=== PATIENT | male | born 1985 | race Caucasian/White ===

== ENCOUNTER 2016-12-03 16:51 | Emergency (ER) | payer BC ==
[~2016-12-03] VITALS: Ht 175.3 cm; Wt 72.6 kg
[~2016-12-03 16:51] MED LIST: DOCU50CA9 PO; HYDR-971 PO; ONDA4TAB7 PO; OXYC-323 PO; PANT40TA3 PO; TRAM-29 PO
[2016-12-03 17:20] LABS: BASO # 0.1 x10^3/uL (0.0-0.2); BASO % 1 % (0-3); EOS % 2 % (0-3); HEMATOCRIT 47.1 % (39.0-53.0); LYMPH % 25 % (24-48); MEAN CORPUSCULAR HEMOGLOBIN 30 pg (25-35); MEAN CORPUSCULAR HGB CONC 34 g/dL (31-37); MEAN CORPUSCULAR VOLUME 90 fL (79-100); MONO % 9 % (0-9); NEUT % 63 % (31-73); PLATELET COUNT 173 x10^3/uL (140-400); RED BLOOD COUNT 5.26 x10^6/uL (4.30-5.70); RED CELL DISTRIBUTION WIDTH 13.3 % (11.5-14.5); WHITE BLOOD COUNT 7.9 x10^3/uL (4.0-11.0)
[2016-12-03] MEDS ORDERED: IOHEXOL 300 MG/ML 75 ML VIAL IV ONE (17:30)
[2016-12-03] MEDS ORDERED: MORPHINE SULFATE 10 MG/ML VIAL. IV ONE (17:30)
[2016-12-03] MEDS ORDERED: KETOROLAC TROMETHAMINE 30 MG/ML INJ. IV ONE (17:30)
[2016-12-03] MEDS ORDERED: IV NORMAL SALINE 1000ML BAG 1,000 ML IV ONE (17:30)
[2016-12-03 17:41] LABS: CALCIUM 9.3 mg/dL (8.5-10.1); CREATININE 0.8 mg/dL (0.7-1.3); GFR 113.5; POTASSIUM 4.6 mmol/L (3.5-5.1)
[2016-12-03 17:47] LABS: ALBUMIN/GLOBULIN RATIO 1.2 (1.0-1.7); TOTAL BILIRUBIN 0.4 mg/dL (0.2-1.0); TOTAL PROTEIN 7.4 g/dL (6.4-8.2)
[2016-12-03 18:27] LABS: BILIRUBIN,URINE NEGATIVE (NEG); GLUCOSE,URINE NEGATIVE (NEG); NITRITE,URINE NEGATIVE (NEG); PH,URINE 5.5; PROTEIN,URINE NEGATIVE (NEG-TRACE); UROBILINOGEN,URINE 0.2 mg/dL (0.2 mg/dL)
[2016-12-03 18:34] LABS: BACTERIA,URINE 0 /HPF (0-FEW); RBC,URINE 0 /HPF (0-2)
[2016-12-03 18:49] LABS: BARBITURATES NEG (NEG); BENZODIAZEPINES NEG (NEG); CANNABINOIDS NEG (NEG); COCAINE NEG (NEG); METHADONE NEG (NEG); OPIATES POS (NEG); PHENCYCLIDINE NEG (NEG)
--- NOTE | 2016-12-03 19:27 | RAD ---
PROCEDURE CT abdomen and pelvis with contrast. HISTORY Right groin pain radiating to back. TECHNIQUE Axial images and coronal and sagittal re-formatted images are provided. 75 milliliters of intravenous Omnipaque 300 was administered. One or more of the following individualized dose reduction techniques were utilized for this exam: 1. Automated exposure control. 2. Adjustment of the mA and/or kV according to patient's size. 3. Use of iterative reconstruction technique. COMPARISON None provided at the time of dictation. FINDINGS The lung bases are clear. There is no pleural effusion. Heart is not enlarged. Liver, spleen, pancreas, and adrenals are unremarkable. Gallbladder is absent. Kidneys are symmetrically perfused. Sub centimeter probable cyst in the right kidney is noted. Densities in the left kidney probably represent nonobstructing stones up to 3 millimeters in size. Aorta is normal caliber. Lack of oral contrast limits evaluation of bowel. There is no bowel obstruction or mural thickening. There are a few diverticula in the colon without findings of diverticulitis. Appendix is likely surgically absent. Bladder is unremarkable. Prostate calcifications are noted. Bony structures are intact. IMPRESSION No acute abdominal findings. Electronically signed by: Serjio Beltran MD (December 03, 2016 19:02:42)
[2016-12-03 19:45] VITALS: BP 118/63
--- NOTE | 2016-12-03 19:48 | PHYS DOC ---
Past Medical History Past Medical History: Kidney Stone Past Surgical History: Appendectomy, Cholecystectomy Alcohol Use: None Drug Use: None Adult General Chief Complaint Chief Complaint: GROIN PAIN HPI HPI Patient is a 31 year old male who presents with right groin pain radiating into his lower back into the right lower extremity that began today after he lifted something heavy at work. Patient denies any loss of bowel bladder function. Denies any urgency frequency or dysuria. Denies any concerns for STDs. He states he has history of kidney stones. Review of Systems Review of Systems Constitutional: Denies fever or chills [] Eyes: Denies change in visual acuity, redness, or eye pain [] HENT: Denies nasal congestion or sore throat [] Respiratory: Denies cough or shortness of breath [] Cardiovascular: No additional information not addressed in HPI [] GI: Denies abdominal pain, nausea, vomiting, bloody stools or diarrhea [] : Right groin pain radiating to the back into the right lower extremity Musculoskeletal: Denies back pain or joint pain [] Integument: Denies rash or skin lesions [] Neurologic: Denies headache, focal weakness or sensory changes [] Endocrine: Denies polyuria or polydipsia [] Current Medications Current Medications Current Medications Medications (Trade) Dose Ordered Sig/Viji Start Time Stop Time Status Last Admin Dose Admin Iohexol (Omnipaque 300 Mg/ml) 75 ml 1X ONCE 12/03/16 17:30 12/03/16 17:31 DC 12/03/16 17:52 75 ML Ketorolac Tromethamine (Toradol) 30 mg 1X ONCE 12/03/16 17:30 12/03/16 17:31 DC 12/03/16 17:30 30 MG Morphine Sulfate 5 mg 1X ONCE 12/03/16 17:30 12/03/16 17:31 DC 12/03/16 17:30 5 MG Sodium Chloride 1,000 ml @ 1,000 mls/hr 1X ONCE 12/03/16 17:30 12/03/16 18:29 DC 12/03/16 17:29 1,000 MLS/HR Allergies Allergies Allergies Coded Allergies Type Severity Reaction Last Updated Verified No Known Drug Allergies 06/07/16 No Physical Exam Physical Exam Constitutional: Well developed, well nourished, no acute distress, non-toxic appearance. [] HENT: Normocephalic, atraumatic, bilateral external ears normal, oropharynx moist, no oral exudates, nose normal. [] Eyes: PERRLA, EOMI, conjunctiva normal, no discharge. [] Neck: Normal range of motion, no tenderness, supple, no stridor. [] Cardiovascular:Heart rate regular rhythm, no murmur [] Lungs & Thorax: Bilateral breath sounds clear to auscultation [] Abdomen: Bowel sounds normal, soft, no tenderness, no masses, no pulsatile masses. [] Male exam External appears normal. No palpable masses on the scrotum. Negative inguinal hernia exam bilaterally. Skin: Warm, dry, no erythema, no rash. [] Back: No tenderness, no CVA tenderness. Positive right leg straight raises. Extremities: No tenderness, no cyanosis, no clubbing, ROM intact, no edema. [] Neurologic: Alert and oriented X 3, normal motor function, normal sensory function, no focal deficits noted. [] Psychologic: Affect normal, judgement normal, mood normal. [] Current Patient Data Vital Signs Vital Signs Date Time Temp Pulse Resp B/P (MAP) Pulse Ox O2 Delivery O2 Flow Rate FiO2 12/03/16 18:15 68 136/80 (98) 99 Room Air 12/03/16 17:30 19 12/03/16 17:00 98.4 98.4 Lab Values Laboratory Tests Test 12/03/16 17:10 12/03/16 18:18 White Blood Count 7.9 x10^3/uL (4.0-11.0) Red Blood Count 5.26 x10^6/uL (4.30-5.70) Hemoglobin 16.0 g/dL (13.0-17.5) Hematocrit 47.1 % (39.0-53.0) Mean Corpuscular Volume 90 fL (79-100) Mean Corpuscular Hemoglobin 30 pg (25-35) Mean Corpuscular Hemoglobin Concent 34 g/dL (31-37) Red Cell Distribution Width 13.3 % (11.5-14.5) Platelet Count 173 x10^3/uL (140-400) Neutrophils (%) (Auto) 63 % (31-73) Lymphocytes (%) (Auto) 25 % (24-48) Monocytes (%) (Auto) 9 % (0-9) Eosinophils (%) (Auto) 2 % (0-3) Basophils (%) (Auto) 1 % (0-3) Neutrophils # (Auto) 5.0 x10^3uL (1.8-7.7) Lymphocytes # (Auto) 2.0 x10^3/uL (1.0-4.8) Monocytes # (Auto) 0.7 x10^3/uL (0.0-1.1) Eosinophils # (Auto) 0.1 x10^3/uL (0.0-0.7) Basophils # (Auto) 0.1 x10^3/uL (0.0-0.2) Sodium Level 141 mmol/L (136-145) Potassium Level 4.6 mmol/L (3.5-5.1) Chloride Level 105 mmol/L (98-107) Carbon Dioxide Level 29 mmol/L (21-32) Anion Gap 7 (6-14) Blood Urea Nitrogen 14 mg/dL (8-26) Creatinine 0.8 mg/dL (0.7-1.3) Estimated GFR (Cockcroft-Gault) 113.5 BUN/Creatinine Ratio 18 (6-20) Glucose Level 83 mg/dL (70-99) Calcium Level 9.3 mg/dL (8.5-10.1) Total Bilirubin 0.4 mg/dL (0.2-1.0) Aspartate Amino Transferase (AST) 22 U/L (15-37) Alanine Aminotransferase (ALT) 45 U/L (16-63) Alkaline Phosphatase 89 U/L (46-116) Total Protein 7.4 g/dL (6.4-8.2) Albumin 4.0 g/dL (3.4-5.0) Albumin/Globulin Ratio 1.2 (1.0-1.7) Lipase 91 U/L (73-393) Ethyl Alcohol Level < 10 mg/dL (0-10) Urine Collection Type Unknown Urine Color Yellow Urine Clarity Clear Urine pH 5.5 Urine Specific [place] >=1.030 Urine Protein Negative mg/dL (NEG-TRACE) Urine Glucose (UA) Negative mg/dL (NEG) Urine Ketones (Stick) Negative mg/dL (NEG) Urine Blood Negative (NEG) Urine Nitrite Negative (NEG) Urine Bilirubin Negative (NEG) Urine Urobilinogen Dipstick 0.2 mg/dL (0.2 mg/dL) Urine Leukocyte Esterase Small (NEG) Urine RBC 0 /HPF (0-2) Urine WBC 5-10 /HPF (0-4) Urine Bacteria 0 /HPF (0-FEW) Urine Mucus Mod /LPF Urine Opiates Screen Pos (NEG) Urine Methadone Screen Neg (NEG) Urine Barbiturates Neg (NEG) Urine Phencyclidine Screen Neg (NEG) Urine Amphetamine/Methamphetamine Neg (NEG) Urine Benzodiazepines Screen Neg (NEG) Urine Cocaine Screen Neg (NEG) Urine Cannabinoids Screen Neg (NEG) Urine Ethyl Alcohol Neg (NEG) Laboratory Tests 12/03/16 17:10 Laboratory Tests 12/03/16 17:10 EKG EKG [] Radiology/Procedures Radiology/Procedures []PROCEDURE: CT ABD PELV W/ IV CONTRST ONLY PROCEDURE CT abdomen and pelvis with contrast. HISTORY Right groin pain radiating to back. TECHNIQUE Axial images and coronal and sagittal re-formatted images are provided. 75 milliliters of intravenous Omnipaque 300 was administered. One or more of the following individualized dose reduction techniques were utilized for this exam: 1. Automated exposure control. 2. Adjustment of the mA and/or kV according to patient's size. 3. Use of iterative reconstruction technique. COMPARISON None provided at the time of dictation. FINDINGS The lung bases are clear. There is no pleural effusion. Heart is not enlarged. Liver, spleen, pancreas, and adrenals are unremarkable. Gallbladder is absent. Kidneys are symmetrically perfused. Sub centimeter probable cyst in the right kidney is noted. Densities in the left kidney probably represent nonobstructing stones up to 3 millimeters in size. Aorta is normal caliber. Lack of oral contrast limits evaluation of bowel. There is no bowel obstruction or mural thickening. There are a few diverticula in the colon without findings of diverticulitis. Appendix is likely surgically absent. Bladder is unremarkable. Prostate calcifications are noted. Bony structures are intact. IMPRESSION No acute abdominal findings. Electronically signed by: Serjio Beltran MD (December 03, 2016 19:02:42) DICTATED and SIGNED BY: SERJIO BELTRAN MD DATE: 12/03/16 190 CC: COLETTE NEIL APRN; NON,STAFF; MIO AGUILERA MD ~ Course & Med Decision Making Course & Med Decision Making Pertinent Labs and Imaging studies reviewed. (See chart for details) Patient is in the ED with right groin pain that began after he lifted something heavy at work. Pain radiates to the back into the right lower extremity with positive right leg straight raises. CBC with no acute findings, CMP would not acute findings, lipase with no acute finding. CT of the abdomen and pelvic was negative for any acute findings. Urine was positive for small amount of leukocytes, inquired from patient about possibilities for STDs which he denied. He was discharged with doxycycline, Flexeril and naproxen. Urine was sent to lab for STD check. Dragon Disclaimer Dragon Disclaimer This electronic medical record was generated, in whole or in part, using a voice recognition dictation system. Departure Departure Impression: Primary Impression: Right groin pain Additional Impressions: Urinary tract infection Right sciatic nerve pain Back pain Disposition: HOME, SELF-CARE Condition: STABLE Referrals: MIO AGUILERA MD (PCP) Follow-up with your own doctor in one week Patient Instructions: Back Pain, Adult, Sciatica, Urinary Tract Infection Additional Instructions: You were seen for groin pain. Your CT of the abdomen and pelvic is negative for any acute findings. Your urine shows you have UTI. Complete your antibiotics. Scripts Doxycycline Hyclate (DOXYCYCLINE HYCLATE) 100 Mg Capsule 1 CAP PO BID, #20 CAP Prov: COLETTE NEIL APRN 12/03/16 Cyclobenzaprine Hcl (CYCLOBENZAPRINE HCL) 10 Mg Tablet 1 TAB PO TID, #30 TAB Prov: COLETTE NEIL APRN 12/03/16 Ciprofloxacin Hcl (CIPRO) 500 Mg Tablet 1 TAB PO BID, #14 TAB Prov: COLETTE NEIL APRN 12/03/16 Naproxen (NAPROXEN) 500 Mg Tablet. 1 TAB PO BID, #60 TAB 2 Refills Prov: COLETTE NEIL APRN 12/03/16 Problem Qualifiers COLETTE NEIL APRN December 03, 2016 19:48
[2016-12-03] MEDS ORDERED: CYCL10TA2 PO (19:51)
[2016-12-03] MEDS ORDERED: CIPR500T94 PO (19:51)
[2016-12-03] MEDS ORDERED: NAPR500T8 PO (19:51)
[2016-12-03] MEDS ORDERED: DOXY100C2 PO (19:55)
== END 2016-12-03 20:00 | disposition home or self-care (01) ==
LOC: ER 16:51
DX: N39.0 Urinary tract infection, site not specified (principal); M54.41 Lumbago with sciatica, right side; Z90.49 Acquired absence of other specified parts of digestive tract; Z87.442 Personal history of urinary calculi
CPT/HCPCS: 36415; 74177; 80053; 80305; 80320; 81001; 83690; 85027; 87491; 87591; 96361; 96374; 96375; 99285; J1885; J2270; J7030; Q9967; G0480; G0481

== ENCOUNTER 2017-04-08 11:03 | Emergency (ER) | payer BC ==
[~2017-04-08 11:03] MED LIST changes: +CIPR500T94 PO; +CYCL10TA2 PO; +DOXY100C2 PO; +NAPR500T8 PO; -TRAM-29 PO; +TRAM-48 PO
[2017-04-08 11:47] VITALS: BP 127/69
[2017-04-08] MEDS ORDERED: NAPROXEN 500 MG TABLET PO STA (11:52)
[2017-04-08] MEDS ORDERED: CYCLOBENZAPRINE 10 MG TABLET. PO ONE (12:00)
[2017-04-08] MEDS ORDERED: HYDROcodone/APAP 5/325MG 1 TAB TABLET PO ONE (12:00)
--- NOTE | 2017-04-08 12:29 | RAD ---
Three-view lumbar spine radiographs 04/08/2017 Clinical history: Low back pain for 5 days with numbness and tingling in both legs. AP and two lateral standing digital radiographs of the lumbar spine were obtained. Mild S-shaped curvature of the thoracolumbar spine is seen. No fracture or subluxation of the lumbar vertebrae is noted. No significant degenerative changes are seen. Impression: No acute osseous abnormality is seen.
--- NOTE | 2017-04-08 12:46 | PHYS DOC ---
Past Medical History Past Medical History: Kidney Stone, Other Additional Past Medical Histor: KIDNEY STONES Past Surgical History: Appendectomy, Cholecystectomy Alcohol Use: None Drug Use: None Adult General Chief Complaint Chief Complaint: BACK PAIN OR INJURY HPI HPI Patient is a 31 year old male with history of kidney stones who presents today complaining of left low back pain radiating to the left lower extremity that began 5 days ago. Patient denies any trauma. Patient denies any loss of bowel/ bladder function. Patient is also complaining of numbness and tingling to the left hand. Denies any neck pain. Denies any injuries. Patient's also complaining of weakness to the left upper extremity and left lower extremity. Review of Systems Review of Systems Constitutional: Denies fever or chills [] Eyes: Denies change in visual acuity, redness, or eye pain [] HENT: Denies nasal congestion or sore throat [] Respiratory: Denies cough or shortness of breath [] Cardiovascular: No additional information not addressed in HPI [] GI: Denies abdominal pain, nausea, vomiting, bloody stools or diarrhea [] : Denies dysuria or hematuria [] Musculoskeletal: Low back pain, radiating to the left lower extremity. Integument: Denies rash or skin lesions [] Neurologic: Denies headache, focal weakness or sensory changes. Left upper extremity numbness and tingling. Current Medications Current Medications Current Medications Medications (Trade) Dose Ordered Sig/[facility] Start Time Stop Time Status Last Admin Dose Admin Acetaminophen/ Hydrocodone Bitart (Lortab 5/325) 1 tab 1X ONCE 04/08/17 12:00 04/08/17 12:01 DC 04/08/17 12:14 1 TAB Cyclobenzaprine HCl (Flexeril) 10 mg 1X ONCE 04/08/17 12:00 04/08/17 12:01 DC 04/08/17 12:14 10 MG Naproxen (Naprosyn) 500 mg 1X STAT 04/08/17 11:52 04/08/17 12:00 DC 04/08/17 12:14 500 MG Allergies Allergies Allergies Coded Allergies Type Severity Reaction Last Updated Verified No Known Drug Allergies 06/07/16 No Physical Exam Physical Exam Constitutional: Well developed, well nourished, no acute distress, non-toxic appearance. [] HENT: Normocephalic, atraumatic, bilateral external ears normal, oropharynx moist, no oral exudates, nose normal. [] Eyes: PERRLA, EOMI, conjunctiva normal, no discharge. [] Neck: Normal range of motion, no tenderness, supple, no stridor. [] Cardiovascular:Heart rate regular rhythm, no murmur [] Lungs & Thorax: Bilateral breath sounds clear to auscultation [] Abdomen: Bowel sounds normal, soft, no tenderness, no masses, no pulsatile masses. [] Skin: Warm, dry, no erythema, no rash. [] Back: Moderate tenderness on palpation of the left SI joint, no tenderness midline lumbar spine tenderness, no CVA tenderness. 5/5 strength to bilateral upper and lower extremities. Patient is up and ambulating with no difficulties. Extremities: No tenderness, no cyanosis, no clubbing, ROM intact, no edema. [] Neurologic: Alert and oriented X 3, normal motor function, normal sensory function, no focal deficits noted. [] Psychologic: Affect normal, judgement normal, mood normal. [] Current Patient Data Vital Signs Vital Signs Date Time Temp Pulse Resp B/P (MAP) Pulse Ox O2 Delivery O2 Flow Rate FiO2 04/08/17 12:14 16 04/08/17 11:47 98.0 70 127/69 (88) 98 Room Air 98.0 EKG EKG [] Radiology/Procedures Radiology/Procedures [] Course & Med Decision Making Course & Med Decision Making Pertinent Labs and Imaging studies reviewed. (See chart for details) This is a 31-year-old male patient presenting to the ED today with the pain on the left low back radiating to the left lower extremity as well as numbness and tingling to the left upper extremity. No known injury. No loss of bowel bladder function. Cervical spine and lumbar spine x-rays interpreted by radiologist are negative for any acute findings. Interestingly this patient was also complaining of weakness to the left upper extremity and left lower extremity. Off not he is up in the room walking ambulating with no difficulties playing on his cell phone using the left upper extremity with no difficulties. He even pushed down on his left lower extremity to get out of bed with no difficulties. He requested a note for work which was provided for 3 days. Patient was discharged with naproxen and Flexeril. Instructed to follow-up with her PCP in 1-2 weeks. Provided return precautions and discharged in stable condition. Dragon Disclaimer Dragon Disclaimer This electronic medical record was generated, in whole or in part, using a voice recognition dictation system. Departure Departure Impression: Primary Impression: Cervical radiculopathy Additional Impressions: Low back pain Sciatica, left side Disposition: 01 HOME, SELF-CARE Condition: STABLE Referrals: MIO AGUILERA MD (PCP) follow up with your doctor in one week Patient Instructions: Back Pain, Adult, Cervical Radiculopathy, [id number], Sciatica, [id number] Additional Instructions: You were seen for low back pain radiating to the left lower extremity. You can apply heat or ice to the affected area. Your left upper extremity numbness and tingling/symptoms are consistent with cervical radiculopathy. Follow-up with her primary care doctor for this. Take the prescribed medicines as ordered. Do not drive or operate machinery on the cyclobenzaprine. Scripts Cyclobenzaprine Hcl (CYCLOBENZAPRINE HCL) 10 Mg Tablet 1 TAB PO TID, #30 TAB Prov: COLETTE NEIL APRN 04/08/17 Naproxen (NAPROXEN) 500 Mg Tablet. 1 TAB PO BID, #60 TAB 0 Refills Prov: COLETTE NEIL APRN 04/08/17 Problem Qualifiers Additional Impressions: Low back pain Chronicity: acute Back pain laterality: left Sciatica presence: with sciatica Sciatica laterality: sciatica of left side Qualified Codes: M54.42 - Lumbago with sciatica, left side COLETTE NEIL APRN Apr 08, 2017 12:46
--- NOTE | 2017-04-08 13:00 | RAD ---
Five-view cervical spine radiographs 04/08/2017 Clinical history: Neck pain with left hand tingling. Standing AP, lateral, bilateral oblique and AP open mouth odontoid digital radiographs of the cervical spine were obtained. Minimal lateral curvature of the cervical spine is seen convex to the right. There is slight reversal of the normal cervical lordosis. No fracture or subluxation is seen. No significant degenerative changes are noted. No definite area of neural foraminal stenosis is seen. No prevertebral soft tissue swelling is seen. Impression: No acute osseous abnormality is seen.
[2017-04-08] MEDS ORDERED: NAPR500T8 PO (13:45)
[2017-04-08] MEDS ORDERED: CYCL10TA2 PO (13:45)
--- NOTE | 2017-04-09 13:27 | EKG ---
[facility] [address] [place] [address] Test Date: 2017-04-08 Test Time: 11:36:24 Pat Name: NICOLASA ACOSTA Department: Room: Gender: M Dairy Clerk: : 1985 Requested By: STAFF NON Order Number: [id number] Reading MD: Imani Lara Measurements Intervals [place] Rate: 65 P: 36 [place]: 154 QRS: 27 QRSD: 92 T: 31 QT: 362 QTc: 381 Interpretive Statements SINUS RHYTHM LEFT ATRIAL ABNORMALITY INCOMPLETE RIGHT BUNDLE BRANCH BLOCK Electronically Signed On 04-10-2017 12:02:43 CDT by Imani Lara
== END 2017-04-08 13:57 | disposition home or self-care (01) ==
LOC: ER 11:03
DX: M54.42 Lumbago with sciatica, left side (principal); M54.12 Radiculopathy, cervical region; Z90.49 Acquired absence of other specified parts of digestive tract; Z87.442 Personal history of urinary calculi
CPT/HCPCS: 72040; 72100; 93005; 99284-25

== ENCOUNTER 2018-01-21 09:02 | Emergency (ER) | payer BC ==
[2018-01-21] MEDS: ONDANSETRON PF 4 MG/2 ML VIAL. IV (09:48)
[2018-01-21 09:49] LABS: ADD MAN DIFF? NO; BASO % 0 % (0-3); EOS % 0 % (0-3); HEMATOCRIT 46.3 % (39.0-53.0); HEMOGLOBIN 16.1 g/dL (13.0-17.5); LYMPH # 1.1 x10^3/uL (1.0-4.8); LYMPH % 9 % (24-48); MEAN CORPUSCULAR HEMOGLOBIN 31 pg (25-35); MEAN CORPUSCULAR HGB CONC 35 g/dL (31-37); MEAN CORPUSCULAR VOLUME 89 fL (79-100); MONO # 1.2 x10^3/uL (0.0-1.1); MONO % 10 % (0-9); NEUT % 81 % (31-73); PLATELET COUNT 169 x10^3/uL (140-400); RED BLOOD COUNT 5.23 x10^6/uL (4.30-5.70); RED CELL DISTRIBUTION WIDTH 13.5 % (11.5-14.5); WHITE BLOOD COUNT 12.4 x10^3/uL (4.0-11.0)
[2018-01-21] MEDS: fentaNYL PF VIAL 100 MCG/2 ML VIAL IV (09:50)
[2018-01-21] MEDS: CLINDAMYCIN 900MG PREMIX 50 ML IV (09:53)
[2018-01-21 09:58] LABS: ANION GAP 6 (6-14); BLOOD UREA NITROGEN 12 mg/dL (8-26); BUN/CREATININE RATIO 13 (6-20); CALCIUM 8.4 mg/dL (8.5-10.1); CARBON DIOXIDE 26 mmol/L (21-32); CHLORIDE 106 mmol/L (98-107); CREATININE 0.9 mg/dL (0.7-1.3); GFR 98.4; GLUCOSE 112 mg/dL (70-99); POTASSIUM 4.1 mmol/L (3.5-5.1); SODIUM 138 mmol/L (136-145)
[2018-01-21 10:04] LABS: ALBUMIN 3.9 g/dL (3.4-5.0); ALBUMIN/GLOBULIN RATIO 1.2 (1.0-1.7); ALK PHOS 90 U/L (46-116); ALT (SGPT) 35 U/L (16-63); AST (SGOT) 17 U/L (15-37); TOTAL BILIRUBIN 0.5 mg/dL (0.2-1.0); TOTAL PROTEIN 7.2 g/dL (6.4-8.2)
[2018-01-21] MEDS: IOHEXOL 300 MG/ML 100ML VIAL. IV (10:18)
== END 2018-01-21 12:33 | disposition home or self-care (01) ==
LOC: ER 12:33
DX: L03.213 Periorbital cellulitis (principal); K04.7 Periapical abscess without sinus; K00.6 Disturbances in tooth eruption; Z90.49 Acquired absence of other specified parts of digestive tract
CPT/HCPCS: 36415; 70487; 80053; 85025; 96365; 96375; 99285-25; J2405; J3010; J3490; Q9967

== ENCOUNTER 2018-02-14 10:06 | Emergency (ER) | payer BC ==
[2018-02-14 10:34] LABS: ADD MAN DIFF? NO
[2018-02-14 10:37] LABS: BASO % 0 % (0-3); EOS # 0.1 x10^3/uL (0.0-0.7); EOS % 1 % (0-3); HEMATOCRIT 46.6 % (39.0-53.0); HEMOGLOBIN 15.8 g/dL (13.0-17.5); LYMPH % 12 % (24-48); MEAN CORPUSCULAR HEMOGLOBIN 30 pg (25-35); MEAN CORPUSCULAR HGB CONC 34 g/dL (31-37); MEAN CORPUSCULAR VOLUME 89 fL (79-100); MONO # 0.5 x10^3/uL (0.0-1.1); MONO % 6 % (0-9); NEUT # 6.7 x10^3uL (1.8-7.7); NEUT % 81 % (31-73); PLATELET COUNT 146 x10^3/uL (140-400); RED BLOOD COUNT 5.24 x10^6/uL (4.30-5.70); RED CELL DISTRIBUTION WIDTH 13.3 % (11.5-14.5); WHITE BLOOD COUNT 8.3 x10^3/uL (4.0-11.0)
[2018-02-14 10:45] LABS: ANION GAP 9 (6-14); BLOOD UREA NITROGEN 19 mg/dL (8-26); BUN/CREATININE RATIO 21 (6-20); CALCIUM 8.6 mg/dL (8.5-10.1); CARBON DIOXIDE 26 mmol/L (21-32); CHLORIDE 105 mmol/L (98-107); CREATININE 0.9 mg/dL (0.7-1.3); GFR 98.4; GLUCOSE 128 mg/dL (70-99); POTASSIUM 4.2 mmol/L (3.5-5.1); SODIUM 140 mmol/L (136-145)
[2018-02-14] MEDS: IOHEXOL 300 MG/ML 100ML VIAL. IV (10:45)
[2018-02-14] MEDS ORDERED: CONTRAST GIVEN. MC (10:45)
[2018-02-14] MEDS: fentaNYL PF VIAL 100 MCG/2 ML VIAL IV (10:45)
[2018-02-14] MEDS: IV NORMAL SALINE 1000ML BAG 1,000 ML IV (10:45)
[2018-02-14] MEDS: ONDANSETRON PF 4 MG/2 ML VIAL. IV (10:46)
[2018-02-14 10:51] LABS: ALBUMIN 3.7 g/dL (3.4-5.0); ALK PHOS 109 U/L (46-116); ALT (SGPT) 121 U/L (16-63); AST (SGOT) 102 U/L (15-37); CREATINE KINASE 261 U/L (39-308); DIRECT BILIRUBIN 0.3 mg/dL (0.0-0.2); LIPASE 389 U/L (73-393); TOTAL BILIRUBIN 0.8 mg/dL (0.2-1.0); TOTAL PROTEIN 7.4 g/dL (6.4-8.2)
[2018-02-14 11:46] LABS: BILIRUBIN,URINE SMALL (NEG); CLARITY,URINE CLEAR; COLOR,URINE AMBER; GLUCOSE,URINE NEGATIVE (NEG); NITRITE,URINE NEGATIVE (NEG); PROTEIN,URINE NEGATIVE (NEG-TRACE); RBC,URINE OCC /HPF (0-2)
[2018-02-14 11:47] LABS: BACTERIA,URINE FEW /HPF (0-FEW); SQUAMOUS EPITHELIAL CELL,UR OCC /LPF
== END 2018-02-14 12:35 | disposition home or self-care (01) ==
LOC: ER 10:06
DX: R10.11 Right upper quadrant pain (principal); R10.31 Right lower quadrant pain; R11.2 Nausea with vomiting, unspecified; R07.89 Other chest pain; Z90.49 Acquired absence of other specified parts of digestive tract; Z90.89 Acquired absence of other organs; Z87.442 Personal history of urinary calculi; Z88.6 Allergy status to analgesic agent
CPT/HCPCS: 36415; 71046; 74177; 80053; 80076; 81001; 82550; 83690; 85025; 93005; 96361; 96374; 96375; 99285-25; J2405; J3010; J7030; Q9967

== ENCOUNTER 2018-04-20 09:08 | Emergency (ER) | payer BC ==
[~2018-04-20] VITALS: Ht 175.3 cm; Wt 72.6 kg
[~2018-04-20 09:08] MED LIST changes: +CLIN150C14 PO; +IBUP-1060 PO
[2018-04-20 09:28] VITALS: BP 140/90
--- NOTE | 2018-04-20 10:01 | PHYS DOC ---
Past Medical History Past Medical History: Kidney Stone, Other Additional Past Medical Histor: KIDNEY STONES Past Surgical History: Appendectomy, Cholecystectomy Alcohol Use: None Drug Use: None Adult General Chief Complaint Chief Complaint: HAND PROBLEM HPI HPI Patient is a 32 year old male who presents to the ER with complaints of right hand pain after fall this morning. He states he was playing rotten egg with his children when he tripped and fell. Currently, he rates his pain as a 9 out of 10 on the pain scale. He did not take any medication prior to arrival to the ER. he also reports limited movement of his left middle finger after the injury. Review of Systems Review of Systems Constitutional: Denies fever or chills [] Musculoskeletal: Denies back pain, Reports R hand pain Integument: Denies rash or skin lesions; reports swelling and bruising to R 2nd and 3rd digits after fall [] Neurologic: Denies headache, focal weakness or sensory changes [] All other systems were reviewed and found to be within normal limits, except as documented in this note. Current Medications Current Medications Current Medications Medications (Trade) Dose Ordered Sig/[facility] Start Time Stop Time Status Last Admin Dose Admin Naproxen (Naprosyn) 500 mg 1X STAT 04/20/18 09:49 04/20/18 09:52 DC 04/20/18 10:06 500 MG Allergies Allergies Allergies Coded Allergies Type Severity Reaction Last Updated Verified aspirin Allergy Intermediate Hives 02/14/18 Yes Physical Exam Physical Exam Constitutional: Well developed, well nourished, no acute distress, non-toxic appearance. [] HENT: Normocephalic, atraumatic, bilateral external ears normal, oropharynx moist, no oral exudates, nose normal. [] Eyes: PERRLA, conjunctiva normal, no discharge. [] Skin: Warm, dry, no erythema; bruising noted to R 2nd and third digits near the PIP Extremities: No cyanosis, no clubbing, Swelling and tenderness to right hand proximal to 2nd and 3rd digits and to the 2nd and 3rd digits, no deformity. R radial pulse 2+ Neurologic: Alert and oriented X 3, normal motor function, normal sensory function, no focal deficits noted. [] Psychologic: Affect normal, judgement normal, mood normal. [] Current Patient Data Vital Signs Vital Signs Date Time Temp Pulse Resp B/P (MAP) Pulse Ox O2 Delivery O2 Flow Rate FiO2 04/20/18 09:28 98.6 92 18 140/90 (107) 97 Room Air 98.6 EKG EKG [] Radiology/Procedures Radiology/Procedures PROCEDURE: HAND RIGHT 3V EXAM: Right hand, 3 views. HISTORY: Fall. Swelling. COMPARISON: None. FINDINGS: 3 views of the right hand are obtained. There is a 7 mm displaced fracture fragment from the base of the third middle proximal phalanx. No additional fracture is seen. There is a bone island within the fourth distal phalanx. IMPRESSION: Displaced fracture fragment from the base of the third proximal phalanx. [] Course & Med Decision Making Course & Med Decision Making Pertinent Labs and Imaging studies reviewed. (See chart for details) Dx: displaced fracture of proximal phalanx of right 3rd finger X-ray revealed fx. PT was given one 500 mg naproxen in the department, reported reduced pain after medication. Pt was placed in an aluminum finger splint. Prescription for hydrocodone #12 written. Follow up wtih Dr. Fischer. Return to ER if sx worsen. Patient verbalized an understanding of home care, medications, follow-up, and return to ED instructions and was in agreement with the plan of care. [] Dragon Disclaimer Dragon Disclaimer This electronic medical record was generated, in whole or in part, using a voice recognition dictation system. Departure Departure Impression: Primary Impression: Fracture of proximal phalanx of finger of right hand Disposition: 01 HOME, SELF-CARE Condition: STABLE Referrals: MIO AGUILERA MD (PCP) HARSH FISCHER II, MD Patient Instructions: Finger Fracture, [id number] Additional Instructions: Fill prescription and take as directed for pain. You may also take ibuprofen for pain. Recommend application of ice, elevation, and rest of affected extremity. Wear the splint that was placed until follow up appointment. Return to the ER if your symptoms worsen. Scripts Hydrocodone Bit/Acetaminophen (HYDROCODONE-APAP 5-325 ) 1 Each Tablet 1 TAB PO PRN Q6HRS PRN for PAIN for 3 Days, #12 TAB 0 Refills Prov: MELQUIADES DAWKINS APRN 04/20/18 Splinting Splinting : Location: 3rd digit of R hand Pre-Made Type: metal Splint: aluminum finger Pre-Proc Neuro Vasc Exam: normal Post-Proc Neuro Vasc Exam: normal, unchanged from pre-exam Attending Signature Attending Signature I have reviewed the PA/EVENING OR NIGHT NURSE SUPERVISOR's note and plan of care. I was available for consultation as needed during the patient's visit in the emergency department. I agree with the clinical impression, plan, and disposition. MELQUIADES DAWKINS APRN Apr 20, 2018 10:01 NHUNG MARINO DO Apr 20, 2018 12:26
[2018-04-20] MEDS: NAPROXEN 500 MG TABLET PO STA (10:06)
--- NOTE | 2018-04-20 10:14 | RAD ---
EXAM: Right hand, 3 views. HISTORY: Fall. Swelling. COMPARISON: None. FINDINGS: 3 views of the right hand are obtained. There is a 7 mm displaced fracture fragment from the base of the third middle proximal phalanx. No additional fracture is seen. There is a bone island within the fourth distal phalanx. IMPRESSION: Displaced fracture fragment from the base of the third proximal phalanx. Electronically signed by: Annemarie Hernandez MD (04/20/2018 10:09 AM) [place] [id number]
[2018-04-20] MEDS ORDERED: HYDR-2758 PO (11:12)
== END 2018-04-20 11:17 | disposition home or self-care (01) ==
LOC: ER 09:08
DX: S62.612A Displaced fracture of proximal phalanx of right middle finger, initial encounter for closed fracture (principal); Z88.6 Allergy status to analgesic agent; Z90.49 Acquired absence of other specified parts of digestive tract; Z90.89 Acquired absence of other organs; Z87.442 Personal history of urinary calculi; W01.0XXA Fall on same level from slipping, tripping and stumbling without subsequent striking against object, initial encounter; Y93.89 Activity, other specified; Y92.89 Other specified places as the place of occurrence of the external cause; Y99.8 Other external cause status
CPT/HCPCS: 29130; 73130; 99284

== ENCOUNTER 2019-04-22 11:50 | Emergency (ER) | payer OTHER, BC ==
[~2019-04-22] VITALS: Ht 175.3 cm; Wt 81.6 kg
[~2019-04-22 11:50] MED LIST changes: +HYDR-2761 PO; +HYDR-3164 PO; -HYDR-971 PO; -OXYC-323 PO; +OXYC1TAB15 PO; -PANT40TA3 PO; +PANT40TA77 PO
[2019-04-22 12:05] VITALS: BP 123/79
--- NOTE | 2019-04-22 13:29 | RAD ---
EXAM: Chest and left ribs, 4 views; left clavicle, 2 views HISTORY: Fall. Pain. COMPARISON: 02/14/2018 FINDINGS: A frontal view of the chest and 3 views of the left ribs and 2 views of the left clavicle are obtained. There is no infiltrate, pleural effusion or pneumothorax. No displaced fracture is seen. The acromioclavicular joint appears to be intact. IMPRESSION: No acute pulmonary or osseous finding. Electronically signed by: Annemarie Hernandez MD (04/22/2019 1:27 PM) [place] [id number]
[2019-04-22] MEDS ORDERED: NAPR-514 PO (13:50)
--- NOTE | 2019-04-22 13:50 | PHYS DOC ---
Past Medical History Past Medical History: Anxiety, Depression, Kidney Stone, Other Additional Past Medical Histor: KIDNEY STONES Past Surgical History: Appendectomy, Cholecystectomy, Tonsillectomy Alcohol Use: None Drug Use: None Adult General Chief Complaint Chief Complaint: MECHANICAL FALL HPI HPI Patient is a 33 year old [f__sex] who presents with [] Review of Systems Review of Systems Constitutional: Denies fever or chills [] Eyes: Denies change in visual acuity, redness, or eye pain [] HENT: Denies nasal congestion or sore throat [] Respiratory: Denies cough or shortness of breath [] Cardiovascular: No additional information not addressed in HPI [] GI: Denies abdominal pain, nausea, vomiting, bloody stools or diarrhea [] : Denies dysuria or hematuria [] Musculoskeletal: Denies back pain or joint pain [] Integument: Denies rash or skin lesions [] Neurologic: Denies headache, focal weakness or sensory changes [] Endocrine: Denies polyuria or polydipsia [] All other systems were reviewed and found to be within normal limits, except as documented in this note. Allergies Allergies Allergies Coded Allergies Type Severity Reaction Last Updated Verified aspirin Allergy Intermediate Hives 02/14/18 Yes Physical Exam Physical Exam Constitutional: Well developed, well nourished, no acute distress, non-toxic appearance. [] HENT: Normocephalic, atraumatic, bilateral external ears normal, oropharynx moist, no oral exudates, nose normal. [] Eyes: PERRLA, EOMI, conjunctiva normal, no discharge. [] Neck: Normal range of motion, no tenderness, supple, no stridor. [] Cardiovascular:Heart rate regular rhythm, no murmur [] Lungs & Thorax: Bilateral breath sounds clear to auscultation [] Abdomen: Bowel sounds normal, soft, no tenderness, no masses, no pulsatile masses. [] Skin: Warm, dry, no erythema, no rash. [] Back: No tenderness, no CVA tenderness. [] Extremities: No tenderness, no cyanosis, no clubbing, ROM intact, no edema. [] Neurologic: Alert and oriented X 3, normal motor function, normal sensory function, no focal deficits noted. [] Psychologic: Affect normal, judgement normal, mood normal. [] Current Patient Data Vital Signs Vital Signs Date Time Temp Pulse Resp B/P (MAP) Pulse Ox O2 Delivery O2 Flow Rate FiO2 04/22/19 12:05 98.6 90 16 123/79 (94) 96 Room Air 98.6 EKG EKG [] Radiology/Procedures Radiology/Procedures PROCEDURE: CLAVICLE LEFT EXAM: Chest and left ribs, 4 views; left clavicle, 2 views HISTORY: Fall. Pain. COMPARISON: 02/14/2018 FINDINGS: A frontal view of the chest and 3 views of the left ribs and 2 views of the left clavicle are obtained. There is no infiltrate, pleural effusion or pneumothorax. No displaced fracture is seen. The acromioclavicular joint appears to be intact. IMPRESSION: No acute pulmonary or osseous finding.[] Course & Med Decision Making Course & Med Decision Making Pertinent Labs and Imaging studies reviewed. (See chart for details) [] Dragon Disclaimer Dragon Disclaimer This electronic medical record was generated, in whole or in part, using a voice recognition dictation system. Departure Departure Impression: Primary Impression: Fall from standing Additional Impressions: Contusion of rib on left side Contusion of left clavicle Disposition: 01 HOME, SELF-CARE Condition: STABLE Referrals: MIO AGUILERA MD (PCP) Patient Instructions: Contusion, [id number], Fall Prevention and Home Safety, [id number] Additional Instructions: Fill prescription and take as directed. Apply ice to sore areas for 10-15 minute s every hour while awake today, then as needed for comfort. Follow up with your work comp doctor in 1-2 days, return to the ER if symptoms worsen. Scripts Naproxen (NAPROXEN) 500 Mg Tablet 1 TAB PO BID PRN for PAIN for 10 Days, #20 TAB 0 Refills Prov: MELQUIADES DAWKINS INTERNET MARKETING SPECIALIST 04/22/19 Problem Qualifiers Primary Impression: Fall from standing Encounter type: initial encounter Qualified Codes: W19.XXXA - Unspecified fall, initial encounter Additional Impressions: Contusion of rib on left side Encounter type: initial encounter Qualified Codes: S20.212A - Contusion of left front wall of thorax, initial encounter Contusion of left clavicle Encounter type: initial encounter Qualified Codes: S40.012A - Contusion of left shoulder, initial encounter MELQUIADES DAWKINS INTERNET MARKETING SPECIALIST Apr 22, 2019 13:50
== END 2019-04-22 14:03 | disposition home or self-care (01) ==
LOC: ER 11:50
DX: S20.212A Contusion of left front wall of thorax, initial encounter (principal); S40.012A Contusion of left shoulder, initial encounter; Z88.6 Allergy status to analgesic agent; W18.39XA Other fall on same level, initial encounter; Y93.89 Activity, other specified; Y92.89 Other specified places as the place of occurrence of the external cause; Y99.8 Other external cause status
CPT/HCPCS: 71101; 73000; 99284

== ENCOUNTER 2019-05-02 20:56 | Emergency (ER) | payer OTHER, BC ==
[~2019-05-02] VITALS: Ht 175.3 cm; Wt 81.6 kg
[~2019-05-02 20:56] MED LIST changes: +NAPR-514 PO
[2019-05-02] MEDS ORDERED: HYDROcodone/APAP 5/325MG 1 TAB TABLET PO ONE (23:00)
[2019-05-02] MEDS ORDERED: ORPHENADRINE CITRATE 60 MG/2 ML VIAL. IM ONE (23:00)
--- NOTE | 2019-05-02 23:38 | PHYS DOC ---
Past Medical History Past Medical History: Anxiety, Depression, Kidney Stone, Other Additional Past Medical Histor: KIDNEY STONES (KALEN GALEANA APRN) Past Surgical History: Appendectomy, Cholecystectomy, Tonsillectomy (KALEN GALEANA APRN) Alcohol Use: None Drug Use: None (KALEN GALEANA APRN) Attending Signature I have participated in the care of this patient and I have reviewed and agree with all pertinent clinical information above including history, exam, and recommendations. (VENTURA QUESADA MD) Adult General Chief Complaint Chief Complaint: LOWER EXT PAIN HPI HPI Patient is a 33 year old male who presents with one week ago was at work in his right foot slipped out from under him when he fell on his left side. Patient states he has been following up with work comp doctors and they have him on light duty and he cannot take more than 10 pounds at a time. Patient states that this morning he actually had physical therapy because they state that he has a pinched nerve in his neck and down into his medial nerve in his left arm. Patient states that yesterday at work he felt a pop in his lower back but did not think much of it. Patient states when he went to work today he began having extreme pain in his bilateral lower back and his mid back with sharp shooting pain going down the back of his bilateral legs. Patient states his bilateral legs began to tingle and have a burning sensation. Patient is rating his pain a 10 out of 10. Patient states he can walk but it is very painful. Patient states he can't stand up straight due to the pain. Patient states he last took any pain medication at 1450 and it was tramadol. Patient denies losing his bowel or bladder. (KALEN GALEANA APRN) Review of Systems Review of Systems Musculoskeletal: back pain or joint pain [] All other systems were reviewed and found to be within normal limits, except as documented in this note. (KALEN GALEANA APRN) Current Medications Current Medications Current Medications Medications (Trade) Dose Ordered Sig/Viji Start Time Stop Time Status Last Admin Dose Admin Acetaminophen/ Hydrocodone Bitart (Lortab 5/325) 1 tab 1X ONCE 05/02/19 23:00 05/02/19 23:01 DC 05/02/19 23:15 1 TAB Orphenadrine Citrate (Norflex) 60 mg 1X ONCE 05/02/19 23:00 05/02/19 23:01 DC 05/02/19 23:15 60 MG (VENTURA QUESADA MD) Allergies Allergies Allergies Coded Allergies Type Severity Reaction Last Updated Verified aspirin Allergy Intermediate Hives 02/14/18 Yes (VENTURA QUESADA MD) Physical Exam Physical Exam Constitutional: Well developed, well nourished, no acute distress, non-toxic appearance. [] Neck: Normal range of motion, no tenderness, supple, no stridor. [] Skin: Warm, dry, no erythema, no rash. [] Back: Paraspinal lumbar, focal bony spinal from lumbar up through thoracic tenderness, no CVA tenderness. [] Extremities: No tenderness, no cyanosis, no clubbing, ROM intact, no edema. [] Neurologic: Alert and oriented X 3, normal motor function, normal sensory function, no focal deficits noted. [] Psychologic: Affect normal, judgement normal, mood normal. [] (KALEN GALEANA APRN) Current Patient Data Vital Signs Vital Signs Date Time Temp Pulse Resp B/P (MAP) Pulse Ox O2 Delivery O2 Flow Rate FiO2 05/02/19 23:46 68 16 113/65 (81) 98 05/02/19 23:15 Room Air 05/02/19 21:35 97.6 97.6 (VENTURA QUESADA MD) EKG EKG [] (KALEN GALEANA APRN) Radiology/Procedures Radiology/Procedures [] (KALEN GALEANA APRN) Impressions: [facility] [address] [place] [address] IMAGING REPORT Signed PATIENT: NICOLASA ACOSTA ACCOUNT: [id number] : 1985 LOCATION: ER AGE: 33 SEX: M EXAM STATUS: REG ER ORD. PHYSICIAN: KALEN GALEANA APRN REASON: back pain radiating down both legs, fall x10 days ago PROCEDURE: CERVICAL SPINE 2-3V Cervical spine 4 views: Reason for examination: Fell 10 days ago with back pain radiating down both legs. The odontoid process is intact and normally centered between the lateral masses of C1. The cervical vertebral bodies are normally aligned anteriorly and posteriorly. No acute fracture or subluxation is seen. The intervertebral discs are maintained. Prevertebral soft tissues are normal. IMPRESSION: No acute abnormality in the cervical spine. Thoracic spine 2 views: The vertebral bodies of the thoracic spine appear to be normally aligned anteriorly and posteriorly. No acute fracture or subluxation is evident. Posterior elements appear to be intact. The intervertebral discs are maintained. IMPRESSION: No acute abnormality in the thoracic spine. Lumbar spine 3 views: The vertebral bodies of the lumbar spine are normally aligned anteriorly and posteriorly. No acute fracture or subluxation is seen. Posterior elements are intact. The intervertebral discs are maintained. No gross abnormality seen at the sacrum or sacroiliac joints. IMPRESSION: No acute abnormality evident in the lumbar spine. Electronically signed by: Lu Salazar MD (05/02/2019 11:48 PM) [facility] DICTATED and SIGNED BY: LU SALAZAR MD DATE: 05/02/19 9908 (KALEN GALEANA APRN) Course & Med Decision Making Course & Med Decision Making There is focal bony spinal tenderness from the lumbar spine up into the thoracic spine. There is also paraspinal tenderness in the lumbar. No extremity edema, sensation loss, color change or temperature change. Pedal pulses are strong and present. Cap refill less than 3 seconds. Patient is able to move all extremities equally and has equal strength in all extremities. Movement is very painful for the patient. Patient does have full range of motion in his neck. (KALEN GALEANA APRN) Dragon Disclaimer Dragon Disclaimer This electronic medical record was generated, in whole or in part, using a voice recognition dictation system. (KALEN GALEANA APRN) Departure Departure Impression: Primary Impression: Low back pain Disposition: 01 HOME, SELF-CARE Condition: STABLE Referrals: MIO AGUILERA MD (PCP) Patient Instructions: Sciatica, Sciatica with Rehab-SportsMed Additional Instructions: Follow up with work comp physician. Take medications as prescribed. Try using a heating pad. Scripts Hydrocodone/Apap 5-325 (NORCO 5-325 TABLET) 1 Each Tablet 1 TAB PO PRN Q6HRS PRN for PAIN, #10 TAB 0 Refills Prov: KALEN GALEANA APRN 05/02/19 Ibuprofen (IBUPROFEN) 600 Mg Tablet 600 MG PO PRN Q6HRS PRN for INFLAMMATION, #10 TAB Prov: KALEN GALEANA 05/02/19 Methylprednisolone (MEDROL) 4 Mg Tab.ds.pk 1 PKG PO UD, #1 PKG Prov: KALEN GALEANA SALES SUPPORT REP 05/02/19 Problem Qualifiers Primary Impression: Low back pain Chronicity: acute Back pain laterality: bilateral Sciatica presence: with sciatica Sciatica laterality: bilateral sciatica Qualified Codes: M54.42 - Lumbago with sciatica, left side; M54.41 - Lumbago with sciatica, right side KALEN GALEANA EVETTE May 02, 2019 23:38 VENTURA QUESADA MD May 03, 2019 18:53
[2019-05-02 23:46] VITALS: BP 113/65
--- NOTE | 2019-05-02 23:51 | RAD ---
Cervical spine 4 views: Reason for examination: Fell 10 days ago with back pain radiating down both legs. The odontoid process is intact and normally centered between the lateral masses of C1. The cervical vertebral bodies are normally aligned anteriorly and posteriorly. No acute fracture or subluxation is seen. The intervertebral discs are maintained. Prevertebral soft tissues are normal. IMPRESSION: No acute abnormality in the cervical spine. Thoracic spine 2 views: The vertebral bodies of the thoracic spine appear to be normally aligned anteriorly and posteriorly. No acute fracture or subluxation is evident. Posterior elements appear to be intact. The intervertebral discs are maintained. IMPRESSION: No acute abnormality in the thoracic spine. Lumbar spine 3 views: The vertebral bodies of the lumbar spine are normally aligned anteriorly and posteriorly. No acute fracture or subluxation is seen. Posterior elements are intact. The intervertebral discs are maintained. No gross abnormality seen at the sacrum or sacroiliac joints. IMPRESSION: No acute abnormality evident in the lumbar spine. Electronically signed by: Corinne Roper MD (05/02/2019 11:48 PM) [facility]
[2019-05-02] MEDS ORDERED: IBUP-1007 PO (23:58)
[2019-05-02] MEDS ORDERED: METH4TAB2 PO (23:58)
[2019-05-02] MEDS ORDERED: HYDR-3164 PO (23:58)
== END 2019-05-03 00:13 | disposition home or self-care (01) ==
LOC: ER 20:56
DX: M54.42 Lumbago with sciatica, left side (principal); M54.41 Lumbago with sciatica, right side; M54.6 Pain in thoracic spine; M54.2 Cervicalgia; F41.9 Anxiety disorder, unspecified; F32.9 Major depressive disorder, single episode, unspecified; Z87.442 Personal history of urinary calculi; Z90.89 Acquired absence of other organs; Z90.49 Acquired absence of other specified parts of digestive tract; Z88.6 Allergy status to analgesic agent
CPT/HCPCS: 72040; 72072; 72100; 96372; 99284; J2360

== ENCOUNTER 2019-10-13 17:26 | Emergency (ER) | payer BC, OTHER ==
[~2019-10-13] VITALS: Ht 175.3 cm; Wt 86.0 kg
[~2019-10-13 17:26] MED LIST changes: +IBUP-1007 PO; +METH4TAB2 PO
[2019-10-13 17:30] VITALS: BP 131/77
[2019-10-13] MEDS ORDERED: IV NORMAL SALINE 1000ML BAG 1,000 ML IV ONE (17:45)
[2019-10-13] MEDS ORDERED: MORPHINE SULFATE 4 MG/ML VIAL. IV ONE ×2 (17:45→18:45)
[2019-10-13] MEDS ORDERED: ONDANSETRON PF 4 MG/2 ML VIAL. IVP ONE (17:45)
[2019-10-13 17:51] LABS: BASO # 0.1 x10^3/uL (0.0-0.2); BASO % 1 % (0-3); EOS # 0.1 x10^3/uL (0.0-0.7); EOS % 2 % (0-3); HEMATOCRIT 49.9 % (39.0-53.0); HEMOGLOBIN 16.9 g/dL (13.0-17.5); LYMPH # 1.7 x10^3/uL (1.0-4.8); LYMPH % 19 % (24-48); MEAN CORPUSCULAR HEMOGLOBIN 31 pg (25-35); MEAN CORPUSCULAR HGB CONC 34 g/dL (31-37); MEAN CORPUSCULAR VOLUME 90 fL (79-100); MONO # 0.7 x10^3/uL (0.0-1.1); MONO % 8 % (0-9); NEUT # 6.4 x10^3/uL (1.8-7.7); NEUT % 71 % (31-73); PLATELET COUNT 188 x10^3/uL (140-400); RED BLOOD COUNT 5.52 x10^6/uL (4.30-5.70); RED CELL DISTRIBUTION WIDTH 13.2 % (11.5-14.5)
--- NOTE | 2019-10-13 17:52 | PHYS DOC ---
Past Medical History Past Medical History: Anxiety, Depression, Kidney Stone, Other Additional Past Medical Histor: KIDNEY STONES (RONNIE PAULSON) Past Surgical History: Appendectomy, Cholecystectomy, Tonsillectomy (RONNIE PAULSON) Smoking Status: Current Every Day Smoker Alcohol Use: None Drug Use: None (RONNIE PAULSON) Adult General Chief Complaint Chief Complaint: FLANK PAIN HPI HPI Patient is a 34 year old M who reports 2 days of worsening R flank pain that wraps to his RLQ. He has a hx of kidney stones and reports his last stone was about a year ago and required a stent. He is nauseated. He noticed blood in his urine. He is diophoretic on arrival. Pt has had his appendix and gallbladder removed previously. (RONNIE PAULSON) Review of Systems Review of Systems Constitutional: Denies fever or chills HENT: Denies nasal congestion or sore throat Respiratory: Denies cough or shortness of breath Cardiovascular: Denies chest pain GI: Reports abdominal pain, nausea, vomiting. Denies bloody stools or diarrhea : Denies dysuria. Reports R flank pain and hematuria. Musculoskeletal: Reports R flank pain Integument: Denies rash or skin lesions Neurologic: Denies headache, focal weakness or sensory changes All other systems were reviewed and found to be within normal limits, except as documented in this note. (RONNIE PAULSON) Current Medications Current Medications Current Medications Medications (Trade) Dose Ordered Sig/Viji Start Time Stop Time Status Last Admin Dose Admin Morphine Sulfate (Morphine Sulfate) 4 mg 1X ONCE 10/13/19 18:45 10/13/19 18:54 DC 10/13/19 18:52 4 MG Ondansetron HCl (Zofran) 4 mg 1X ONCE 10/13/19 17:45 10/13/19 17:46 DC 10/13/19 17:50 4 MG Sodium Chloride 1,000 ml @ 1,000 mls/hr 1X ONCE 10/13/19 17:45 10/13/19 18:44 DC 10/13/19 17:51 1,000 MLS/HR (NHUNG MARINO DO) Allergies Allergies Allergies Coded Allergies Type Severity Reaction Last Updated Verified aspirin Allergy Intermediate Hives 02/14/18 Yes (NHUNG MARINO DO) Physical Exam Physical Exam Constitutional: Well developed, well nourished, no acute distress, non-toxic appearance. HENT: Normocephalic, atraumatic, bilateral external ears normal, oropharynx moist, no oral exudates, nose normal. Neck: Normal range of motion, no tenderness, supple, no stridor. Cardiovascular:Heart rate regular rhythm, no murmur Lungs & Thorax: Bilateral breath sounds clear to auscultation Abdomen: Bowel sounds normal, soft, no masses, no pulsatile masses. Tender to palpation of lateral R side and RLQ region Skin: Warm, dry, no erythema, no rash. Back: R flank pain Extremities: No tenderness, no cyanosis, no clubbing, ROM intact, no edema. Neurologic: Alert and oriented X 3, normal motor function, normal sensory function, no focal deficits noted. Psychologic: Affect normal, judgement normal, mood normal. (RONNIE PAULSON) Current Patient Data Vital Signs Vital Signs Date Time Temp Pulse Resp B/P (MAP) Pulse Ox O2 Delivery O2 Flow Rate FiO2 10/13/19 18:52 20 99 Room Air 10/13/19 17:30 98.3 89 131/77 (95) 98.3 (NHUNG MARINO DO) Lab Values Laboratory Tests Test 10/13/19 17:46 10/13/19 19:10 White Blood Count 9.0 x10^3/uL (4.0-11.0) Red Blood Count 5.52 x10^6/uL (4.30-5.70) Hemoglobin 16.9 g/dL (13.0-17.5) Hematocrit 49.9 % (39.0-53.0) Mean Corpuscular Volume 90 fL (79-100) Mean Corpuscular Hemoglobin 31 pg (25-35) Mean Corpuscular Hemoglobin Concent 34 g/dL (31-37) Red Cell Distribution Width 13.2 % (11.5-14.5) Platelet Count 188 x10^3/uL (140-400) Neutrophils (%) (Auto) 71 % (31-73) Lymphocytes (%) (Auto) 19 % (24-48) L Monocytes (%) (Auto) 8 % (0-9) Eosinophils (%) (Auto) 2 % (0-3) Basophils (%) (Auto) 1 % (0-3) Neutrophils # (Auto) 6.4 x10^3/uL (1.8-7.7) Lymphocytes # (Auto) 1.7 x10^3/uL (1.0-4.8) Monocytes # (Auto) 0.7 x10^3/uL (0.0-1.1) Eosinophils # (Auto) 0.1 x10^3/uL (0.0-0.7) Basophils # (Auto) 0.1 x10^3/uL (0.0-0.2) Sodium Level 142 mmol/L (136-145) Potassium Level 4.4 mmol/L (3.5-5.1) Chloride Level 108 mmol/L (98-107) H Carbon Dioxide Level 24 mmol/L (21-32) Anion Gap 10 (6-14) Blood Urea Nitrogen 23 mg/dL (8-26) Creatinine 0.9 mg/dL (0.7-1.3) Estimated GFR (Cockcroft-Gault) 97.2 BUN/Creatinine Ratio 26 (6-20) H Glucose Level 98 mg/dL (70-99) Calcium Level 8.5 mg/dL (8.5-10.1) Total Bilirubin 0.2 mg/dL (0.2-1.0) Aspartate Amino Transferase (AST) 15 U/L (15-37) Alanine Aminotransferase (ALT) 31 U/L (16-63) Alkaline Phosphatase 82 U/L (46-116) Total Protein 6.5 g/dL (6.4-8.2) Albumin 3.9 g/dL (3.4-5.0) Albumin/Globulin Ratio 1.5 (1.0-1.7) Urine Collection Type Unknown Urine Color Yellow Urine Clarity Clear Urine pH 6.5 (<5.0-8.0) Urine Specific [place] 1.025 (1.000-1.030) Urine Protein Negative mg/dL (NEG-TRACE) Urine Glucose (UA) Negative mg/dL (NEG) Urine Ketones (Stick) Negative mg/dL (NEG) Urine Blood Negative (NEG) Urine Nitrite Negative (NEG) Urine Bilirubin Negative (NEG) Urine Urobilinogen Dipstick 0.2 mg/dL (0.2 mg/dL) Urine Leukocyte Esterase Negative (NEG) Urine RBC 0 /HPF (0-2) Urine WBC Occ /HPF (0-4) Urine Bacteria 0 /HPF (0-FEW) Urine Mucus Slight /LPF Laboratory Tests 10/13/19 17:46 Laboratory Tests 10/13/19 17:46 (NHUNG MARINO DO) Lab Values Laboratory Tests Test 10/13/19 17:46 10/13/19 19:10 White Blood Count 9.0 x10^3/uL (4.0-11.0) Red Blood Count 5.52 x10^6/uL (4.30-5.70) Hemoglobin 16.9 g/dL (13.0-17.5) Hematocrit 49.9 % (39.0-53.0) Mean Corpuscular Volume 90 fL (79-100) Mean Corpuscular Hemoglobin 31 pg (25-35) Mean Corpuscular Hemoglobin Concent 34 g/dL (31-37) Red Cell Distribution Width 13.2 % (11.5-14.5) Platelet Count 188 x10^3/uL (140-400) Neutrophils (%) (Auto) 71 % (31-73) Lymphocytes (%) (Auto) 19 % (24-48) L Monocytes (%) (Auto) 8 % (0-9) Eosinophils (%) (Auto) 2 % (0-3) Basophils (%) (Auto) 1 % (0-3) Neutrophils # (Auto) 6.4 x10^3/uL (1.8-7.7) Lymphocytes # (Auto) 1.7 x10^3/uL (1.0-4.8) Monocytes # (Auto) 0.7 x10^3/uL (0.0-1.1) Eosinophils # (Auto) 0.1 x10^3/uL (0.0-0.7) Basophils # (Auto) 0.1 x10^3/uL (0.0-0.2) Sodium Level 142 mmol/L (136-145) Potassium Level 4.4 mmol/L (3.5-5.1) Chloride Level 108 mmol/L (98-107) H Carbon Dioxide Level 24 mmol/L (21-32) Anion Gap 10 (6-14) Blood Urea Nitrogen 23 mg/dL (8-26) Creatinine 0.9 mg/dL (0.7-1.3) Estimated GFR (Cockcroft-Gault) 97.2 BUN/Creatinine Ratio 26 (6-20) H Glucose Level 98 mg/dL (70-99) Calcium Level 8.5 mg/dL (8.5-10.1) Total Bilirubin 0.2 mg/dL (0.2-1.0) Aspartate Amino Transferase (AST) 15 U/L (15-37) Alanine Aminotransferase (ALT) 31 U/L (16-63) Alkaline Phosphatase 82 U/L (46-116) Total Protein 6.5 g/dL (6.4-8.2) Albumin 3.9 g/dL (3.4-5.0) Albumin/Globulin Ratio 1.5 (1.0-1.7) Urine Collection Type Unknown Urine Color Yellow Urine Clarity Clear Urine pH 6.5 (<5.0-8.0) Urine Specific [place] 1.025 (1.000-1.030) Urine Protein Negative mg/dL (NEG-TRACE) Urine Glucose (UA) Negative mg/dL (NEG) Urine Ketones (Stick) Negative mg/dL (NEG) Urine Blood Negative (NEG) Urine Nitrite Negative (NEG) Urine Bilirubin Negative (NEG) Urine Urobilinogen Dipstick 0.2 mg/dL (0.2 mg/dL) Urine Leukocyte Esterase Negative (NEG) Urine RBC 0 /HPF (0-2) Urine WBC Occ /HPF (0-4) Urine Bacteria 0 /HPF (0-FEW) Urine Mucus Slight /LPF Laboratory Tests 10/13/19 17:46 Laboratory Tests 10/13/19 17:46 (RONNIE PAULSON) EKG EKG [] (RONNIE PAULSON) Radiology/Procedures Radiology/Procedures CT: No ureteral stone noted (RONNIE PAULSON) Course & Med Decision Making Course & Med Decision Making Tests are reassuring. Unclear reason for R flank pain. Discussed with his hx maybe he passed a stone or has a punctate stone. Recommend rest, push fluids and if sympotms persiste close f/u with urology or PCP. Pt to return with any worsening symptoms. (RONNIE PAULSON) Dragon Disclaimer Dragon Disclaimer This electronic medical record was generated, in whole or in part, using a voice recognition dictation system. (RONNIE PAULSON) Departure Departure Impression: Primary Impression: Flank pain, acute Disposition: 01 HOME, SELF-CARE Condition: STABLE Referrals: MIO AGUILERA MD (PCP) Patient Instructions: Flank Pain, [id number] Additional Instructions: We are not sure what is causing this pain, it could be a passed kidney stone or a punctate stone that was not seen on imaging. Push fluids and rest and follow up with your PCP or Urologist. Return if symptoms worsen at anytime. Scripts Hydrocodone/Apap 5-325 (NORCO 5-325 TABLET) 1 Each Tablet 1-2 TAB PO Q4-6HRS PRN for PAIN, #20 TAB Prov: RONNIE PAULSON 10/13/19 Promethazine Hcl (PROMETHAZINE HCL) 25 Mg Tablet 1 TAB PO PRN Q6HRS PRN for NAUSEA, #20 TAB Prov: RONNIE PAULSON 10/13/19 Attending Signature Attending Signature I have reviewed the PA/SUPERVISOR [employer]'s note and plan of care. I was available for consultation as needed during the patient's visit in the emergency department. I agree with the clinical impression, plan, and disposition. (NHUNG MARINO DO) RONNIE PAULSON Oct 13, 2019 17:52 NHUNG MARINO DO Oct 17, 2019 01:53
[2019-10-13 18:02] LABS: CALCIUM 8.5 mg/dL (8.5-10.1); CREATININE 0.9 mg/dL (0.7-1.3); GFR 97.2; POTASSIUM 4.4 mmol/L (3.5-5.1)
[2019-10-13 18:09] LABS: ALBUMIN 3.9 g/dL (3.4-5.0); ALBUMIN/GLOBULIN RATIO 1.5 (1.0-1.7); TOTAL BILIRUBIN 0.2 mg/dL (0.2-1.0); TOTAL PROTEIN 6.5 g/dL (6.4-8.2)
--- NOTE | 2019-10-13 19:04 | RAD ---
CT scan of the abdomen and pelvis without contrast 10/13/2019 CLINICAL HISTORY: Right flank pain. TECHNIQUE: Unenhanced, contiguous, 2 mm axial sections were obtained through the abdomen and pelvis. One or more of the following individualized dose reduction techniques were utilized for this study: 1. Automated exposure control. 2. Adjustment of the mA and/or kV according to patient size. 3. Use of iterative reconstruction technique. FINDINGS: Images through the lung bases demonstrate minimal dependent subsegmental atelectasis bilaterally. The liver, spleen, pancreas, and adrenal glands are within normal limits. Nonobstructing calculi are seen involving the left kidney. These measure 1 to 3 mm in size. No focal abnormality of the right kidney is seen. There is no evidence of obstruction of either collecting system. No ureteral calculus is seen. The abdominal aorta tapers normally. Surgical clips are seen within the gallbladder fossa consistent with a cholecystectomy. Food debris is seen within the stomach. There is no evidence of bowel obstruction. Air and stool are seen throughout the colon. The patient is post appendectomy. Images through the pelvis demonstrate the urinary bladder distended with urine. No distal ureteral calculus is seen. No free fluid is noted. Very mild S-shaped curvature of the thoracolumbar spine is seen. IMPRESSION: No acute abnormality is seen. Electronically signed by: Justino Galloway MD (10/13/2019 7:01 PM) [id number]
[2019-10-13 19:25] LABS: BILIRUBIN,URINE NEGATIVE (NEG); CLARITY,URINE CLEAR; COLOR,URINE YELLOW; NITRITE,URINE NEGATIVE (NEG); PH,URINE 6.5 (<5.0-8.0); PROTEIN,URINE NEGATIVE (NEG-TRACE); UROBILINOGEN,URINE 0.2 mg/dL (0.2 mg/dL)
[2019-10-13 19:28] LABS: RBC,URINE 0 /HPF (0-2); WBC,URINE OCC /HPF (0-4)
[2019-10-13 19:29] LABS: BACTERIA,URINE 0 /HPF (0-FEW)
[2019-10-13] MEDS ORDERED: PROM25TA10 PO (19:43)
[2019-10-13] MEDS ORDERED: HYDR-3164 PO (19:43)
== END 2019-10-13 20:10 | disposition home or self-care (01) ==
LOC: ER 17:26
DX: R10.31 Right lower quadrant pain (principal); R11.2 Nausea with vomiting, unspecified; R31.9 Hematuria, unspecified; F41.9 Anxiety disorder, unspecified; F32.9 Major depressive disorder, single episode, unspecified; F17.200 Nicotine dependence, unspecified, uncomplicated; Z87.442 Personal history of urinary calculi; Z90.89 Acquired absence of other organs; Z90.49 Acquired absence of other specified parts of digestive tract; Z88.6 Allergy status to analgesic agent
CPT/HCPCS: 36415; 74176; 80053; 81001; 85025; 96374; 96375; 96376; 99284; J2270; J2405; J7030